=== PATIENT | female | born 1960 | race Caucasian/White ===

== ENCOUNTER 2018-06-24 08:45 | Outpatient (CLI) | payer BC ==
--- NOTE | 2018-06-24 10:22 | ULT ---
THYROID ULTRASOUND: INDICATION: Hypothyroidism, chronic. FINDINGS: Right thyroid lobe is approximately 3.1 cm in length and the left thyroid lobe 2.9 cm in length. The thyroid isthmus is 3 mm in thickness. Within the thyroid isthmus, there is a punctate hypoechoic fo cus a few millimeters in size, likely a small nodule. Within the mid region of the left thyroid lobe, there is a hypoechoic nodule, solid in echotexture measuring up to 1 cm. There is a diminished volu me of the thyroid gland. IMPRESSION: Small thyroid gland, with a solid, approximate 1 cm left thyroid lobe nodule. POS: [facility]
== END 2018-06-24 08:46 | disposition home or self-care (01) ==
LOC: SCSULT 08:45
PROVIDERS: ATTEND Family Medicine
DX: E03.9 Hypothyroidism, unspecified (principal); E04.1 Nontoxic single thyroid nodule
CPT/HCPCS: 76536

== ENCOUNTER → 2018-07-17 | Day surgery (SDC) | payer BC ==
[2018-07-16 12:16] VITALS: BMI 36.5
--- NOTE | 2018-07-17 15:49 | ULT ---
ULTRASOUND GUIDED FINE NEEDLE ASPIRATION OF A LEFT THYROID LOBE MASS: COMPARISON: 06/24/2018. FINDINGS: Redemonstration of a left thyroid lobe mass measuring 0.4 x 1.0 cm. Successful ultrasound-guided fin e needle aspiration. A total of four 25-gauge fine needle aspirations are performed. No immediate o r postprocedure complications. TECHNIQUE: Consent was obtained to perform an ultrasound-guided fine needle aspiration of a solid nodule in the left thyroid lobe. Nodule was evaluated. The skin was prepped and draped in a sterile fashion. 1% Lidocaine, buffered with sodium bicarbonate, was used for local anesthesia. Under ultrasound guidanc e, four 25-0gauge fine needle aspirations were performed. The patient tolerated the procedure well. No immediate or postprocedure complications. IMPRESSION: Successful ultrasound-guided fine needle aspiration of a solid mass in the left thyroid lobe. Final pathologic diagnosis is pending. POS: [facility]
== END ==
LOC: ULT 12:25
PROVIDERS: ATTEND Otolaryngology Plastic Surgery within the Head & Neck
PROC: 0G9G3ZX Drainage of Left Thyroid Gland Lobe, Percutaneous Approach, Diagnostic (ICD-10-PCS; principal; 2018-07-17)
DX: E04.1 Nontoxic single thyroid nodule (principal); E03.9 Hypothyroidism, unspecified; I10 Essential (primary) hypertension; M19.90 Unspecified osteoarthritis, unspecified site; Z79.899 Other long term (current) drug therapy; Z88.0 Allergy status to penicillin; Z88.1 Allergy status to other antibiotic agents
CPT/HCPCS: 10022; 76942; 88173